=== PATIENT | female | born 1975 | race Caucasian/White ===

== ENCOUNTER → 2016-10-24 | Outpatient (CLI) | payer MEDICAID ==
[~2016-10-24] MED LIST: AHIST25 MG PO; ALBUTEROL2 PUFFS/17 IN; AMLODIPINE10 M2 PO; AZITHROMYCIN250 MG PO; BENZONATATE100 MG PO; BUSPIRONE10 MG PO; CALCIUM + D 6001 TAB PO; CARVEDILOL 25MG25 MG PO; CELEXA40 MG PO; CITALOPRAM20 MG PO; COREG25 M1 PO; COREG6.25 MG PO; FENOFIBRATE134 M1 PO; FENOFIBRATE160 MG PO; FLEXERIL10 M1 PO; FLEXERIL10 MG PO; FOLIC ACID5 MG PO; GALZIN25 MG PO; IBU-8800 MG PO; IBU800 M1 PO; IBUPROFEN800 MG PO; INVOKANA100 MG PO; LIPITOR20 M1 PO; LISINOPRIL AND1 TAB PO; LISINOPRIL HCTZ1 TAB PO; LOMOTIL 0.025 M1 TAB PO; MEDROL 4MG. DOSE4 MG PO; METFORMIN HCL500 MG PO; METFORMIN1000 MG PO; METFORMIN500 MG PO; MONODOX100 MG PO; PERCOCET 5/3251 EACH PO; PRAVACHOL 40MG40 MG PO; PRAVASTATIN 40M40 MG PO; PRILOSEC40 MG PO; PROTONIX20 MG PO; RESTORIL 15MG C15 MG PO; ROPINIROLE 0.0.25 MG PO; VITAMIN B121000 MCG SL; VITAMIN D32000 I2 PO; Xanax0.25 MG PO; ZOFRAN4 MG PO; ZOLOFT100 MG PO
[2016-10-24 18:34] LABS: AMPHETAMINES/METAMPHETAMINES NEGATIVE ng/mL (<1000)
== END ==
LOC: LAB 18:21
PROVIDERS: Nurse Practitioner Family
DX: F41.9 Anxiety disorder, unspecified (principal)

== ENCOUNTER → 2017-07-19 | Outpatient (CLI) | payer MEDICAID ==
[~2017-07-19] MED LIST changes: +AUGMENTIN1 TA1 PO
--- NOTE | 2017-07-20 11:30 | RADIOLOGY REPORT PS360 ---
CT SINUS (MAX-FACIAL W/O CONT) COMPARISON: CT scan maxillofacial bones 06/13/2017 HISTORY: Left-sided headache, recent dental abscess TECHNIQUE: Multiple axial scans were obtained of the maxillofacial bones and paranasal sinuses. Sagittal and coronal formats were evaluated as well. FINDINGS: The patient is post recent extraction of the left second molar tooth. There are less inflammatory changes seen at the extraction site on today's study. Again noted is minimal mucoperiosteal thickening of the left maxillary sinus, the right mastoid sinuses clear. The ethmoids frontals and sphenoid sinus are clear. The mastoids are clear. There is mild bowing of the nasal septum to the right. IMPRESSION: Resolving mild post extraction changes left second molar, stable mild chronic left mastoid sinusitis. No definite dental abscess identified.
== END ==
LOC: RAD 13:59
DX: R51 Headache (principal); H92.02 Otalgia, left ear; J34.2 Deviated nasal septum

== ENCOUNTER → 2017-09-21 | Outpatient (CLI) | payer MEDICAID ==
[2017-09-21 09:55] LABS: LYMPH # 2.1 K/mm3 (0.7-4.5); LYMPH % 21.8 % (10-50.0)
[2017-09-21 10:02] LABS: HEMOGLOBIN 14.1 g/dL (12.2-16.2)
[2017-09-21 12:09] LABS: BUN 19 mg/dL (7-18)
[2017-09-21 12:12] LABS: GFR (ESTIMATED) 61 ML/MIN (59-)
[2017-09-23 14:37] LABS: RA Latex Turbid. <10.0 IU/mL (0.0-13.9)
[2017-09-25 03:37] LABS: CCP Antibodies IgG/IgA 11 units (0-19)
== END ==
LOC: LAB 09:43
PROVIDERS: Nurse Practitioner Family
DX: M25.50 Pain in unspecified joint (principal); E11.9 Type 2 diabetes mellitus without complications